=== PATIENT | male | born 1940 | race Caucasian/White ===

== ENCOUNTER 2019-12-08 12:31 | Day surgery (SDC) | payer MEDICARE, OTHER, SELFPAY ==
[2019-12-08 13:12] VITALS: BP 166/79; PULSE 80; RESP 18; TEMP 36.6; O2SAT 98; BMI 22.8
--- NOTE | 2019-12-08 14:08 | P.PCN_ITS ---
- Procedure Date: 12/08/19 Time: 14:08 Anesthesiologist:: Walt Pena MD Complications:: None Pre-procedure Diagnosis:: Low back pain with left hip and left leg pain. 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 He has some tenderness over the left SI joint. Is positive Leonila's test on left side. Is positive Soraida test on left side. Is positive SI joint compression test on left side. We will do a left SI joint injection as well as a lumbar epidural steroid injection today to help him with his pain symptoms. He is visiting here from [place]. He will be driving back on Wednesday. 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 Procedure Details:: Lumbar epidural steroid injection under fluoroscopy Informed consent was obtained and the risk and benefits of the procedure was explained to the patient. The patient was taken to the procedure room. The patient was placed prone on the procedure table. The patient was prepped and draped in sterile fashion. C-arm fluoroscopy was used to view the lumbar spine. Skin and subcutaneous tissues were anesthetized using lidocaine. I placed an 18-gauge epidural needle and advanced into the L4-L5 interspace using fluoroscopic guidance and [id number] to air. After confirmation of needle placement in the epidural space with dye I injected 2 mL of lidocaine 1.5% with Depo-Medrol 80 mg. Patient tolerated the procedure well with no complications. Left SI joint injection under fluoroscopy Informed consent was obtained and the risks and benefits of the procedure was explained to the patient. Patient was taken to the procedure room. Patient was placed prone on the procedure table. The left hip was prepped using ChloraPrep. The skin and subcutaneous tissues were anesthetized using lidocaine. I placed a 22-gauge spinal needle into the inferior aspect of the left SI joint. Needle placement was confirmed with dye. After this we injected 5 mL bupivacaine 0.25% and Depo-Medrol 40 mg into the left SI joint. The patient tolerated the procedure well with no complication. Plan and Disposition:: We will follow-up with him on a as needed basis. Again he is visiting here from [place] and traveling back on Wednesday. If he has any problems or questions he is to call us back in the pain clinic.
[2019-12-08 14:13] VITALS: BP 122/78; PULSE 85; RESP 18
[2019-12-08 14:14] VITALS: BP 128/89; PULSE 85; RESP 18; O2SAT 98
[2019-12-08 14:24] VITALS: BP 164/75; PULSE 68; RESP 18; O2SAT 98
== END 2019-12-08 14:25 | disposition home or self-care (01) ==
LOC: SC.PAINP 12:39
PROVIDERS: Visit Provider Anesthesiology
DX: M51.36 Other intervertebral disc degeneration, lumbar region (principal); M46.1 Sacroiliitis, not elsewhere classified; M25.552 Pain in left hip; M79.605 Pain in left leg; I10 Essential (primary) hypertension; Z90.49 Acquired absence of other specified parts of digestive tract
CPT/HCPCS: 27096; 62323; G0260; J1030; J1040; Q9966